=== PATIENT | male | born 1985 | race Caucasian/White ===

== ENCOUNTER 2020-05-24 23:42 | Emergency (ER) | payer OTHER ==
[~2020-05-24] VITALS: Ht 172.7 cm; Wt 81.6 kg
--- NOTE | 2020-05-24 23:45 | NUR ---
PT AAOX4. PT AAOX4. AMBULATORY WITH STEADY GAIT. BIBSELF C/O HI "IF I GO BACK TO MY APT I'M AFRAID IM GOING TO HURT MY ROOMMATE". -SI. PT PLACED IN GOWN, ON MONITOR AND PULSE OX. PT BELONINGS PLACED IN LOCKER, SITTER AT BEDSIDE. VSS. MD AT BEDSIDE FOR EVAL. AWAITING ORDERS.
[2020-05-25 01:06] LABS: BASOPHILS # (AUTO) 0.1 /CMM (0.0-0.2); BASOPHILS % (AUTO) 0.6 % (0.0-2.0); EOSINOPHILS % (AUTO) 0.8 % (0.0-6.0); HEMATOCRIT 48 % (39-51); HEMOGLOBIN 15.8 g/dL (13.5-17.5); LYMPHOCYTES % (AUTO) 36.3 % (20.0-44.0); MEAN CORPUSCULAR HGB CONC 33 g/dl (31.0-36.0); MEAN CORPUSCULAR VOLUME 85 fL (80-96); MONOCYTES # (AUTO) 0.8 /CMM (0.1-1.30); NEUTROPHILS # (AUTO) 6.2 /CMM (1.8-8.9); NEUTROPHILS % (AUTO) 55.3 % (43.0-81.0); PLATELET COUNT (AUTO) 320 /CMM (150-450); RED BLOOD CELL COUNT(AUTO) 5.67 MIL/uL (4.5-6.0); WHITE BLOOD COUNT (AUTO) 11.1 K/uL (4.3-11.0)
[2020-05-25 01:12] LABS: CALCIUM, SERUM 9.4 mg/dL (8.5-10.1); CARBON DIOXIDE 28 mmol/L (21-32); CHLORIDE 104 mmol/L (98-107); GLUCOSE 99 mg/dL (74-106); POTASSIUM 3.8 mmol/L (3.5-5.1); SODIUM SERUM 142 mmol/L (136-145); UREA NITROGEN, BLOOD 15 mg/dL (7-18)
[2020-05-25 01:27] LABS: ALANINE AMINOTRANSFERASE 30 U/L (12-78); ALBUMIN 4.5 g/dL (3.4-5.0); ALCOHOL, BLOOD < 3 mg/dL (0-0); ALKALINE PHOSPHATASE 75 U/L (46-116); ASPARTATE AMINOTRANSFERASE 16 U/L (15-37); BILIRUBIN,DIRECT 0.3 mg/dL (0.0-0.2); BILIRUBIN,TOTAL 1.3 mg/dL (0.2-1.0); TOTAL PROTEIN, SERUM 8.1 g/dL (6.4-8.2)
[2020-05-25 01:30] LABS: ACETAMINOPHEN < 10 ug/ml (10-30)
[2020-05-25 01:32] LABS: BILIRUBIN,URINE SMALL (NEGATIVE); COLOR,URINE YELLOW (YELLOW); LEUKOCYTE ESTERASE ,URINE NEGATIVE (NEGATIVE); NITRITE, URINE NEGATIVE (NEGATIVE); PROTEIN,URINE NEGATIVE (NEGATIVE); UGLUCOSE NEGATIVE (NEGATIVE); UROBILINOGEN,URINE 0.2 EU/dL (0.2)
--- NOTE | 2020-05-25 02:19 | NUR ---
facesheet and clinicals faxed to [facility].
--- NOTE | 2020-05-25 02:55 | NUR ---
FAX [phone] COVID AND MEDICAL CLEARANCE NOTE
--- NOTE | 2020-05-25 03:07 | NUR ---
COVID RESULT: NEGATIVE
--- NOTE | 2020-05-25 04:55 | NUR ---
PT ACCEPTED AT [facility] ACCEPTING MD BENZ PT WILL GO TO UNIT 1 PHONE # FOR REPORT
[2020-05-25 05:06] VITALS: BP 109/56
--- NOTE | 2020-05-25 05:12 | NUR ---
PT REMAINS ASLEEP.
--- NOTE | 2020-05-25 05:17 | NUR ---
CALLED FOR TRANSPORT WILL CALL BACK WITH [facility] SPOKE WITH [facility]. CONFIRMATION NUMBER IS [id number].
--- NOTE | 2020-05-25 05:29 | NUR ---
ETA 6:30 [facility] TRIP NUMBER [id number]
--- NOTE | 2020-05-25 05:37 | NUR ---
REPORT GIVEN TO TASHA JHA FOR [facility]
--- NOTE | 2020-05-25 06:26 | NUR ---
[facility] at bedside for transport to [facility]
== END 2020-05-25 06:43 ==
LOC: ER 23:45
DX: R45.850 Homicidal ideations (principal)
CPT/HCPCS: 36415; 80048; 80076; 80299; 80307; 80320; 81003; 85025; 87426; 99285; C9803; G0480

== ENCOUNTER 2020-08-25 21:19 | Emergency (ER) | payer OTHER ==
[~2020-08-25] VITALS: Ht 175.3 cm; Wt 81.6 kg
--- NOTE | 2020-08-25 21:22 | NUR ---
PT BIBSELF C/O SUICIDAL IDEATION WITH PLAN TO OVERDOSE. PT DENIES HI/HALLUCINATIONS AT THIS TIME. PT AAOX4. CALM AND COOPERATIVE. VITAL SIGNS STABLE. RESPIRATIONS EVEN AND UNLABORED. AMBULATORY WITH STEADY GAIT. SKIN WARM AND INTACT. NO ACUTE DISTRESS NOTED AT THIS TIME. SUICIDAL PRECAUTIONS INITIATED, PLACED IN GOWN, BELONGINGS COLLECTED AND LOCKED IN PATIENT LOCKER. SITTER AT BEDSIDE. WILL CONTINUE TO MONITOR
--- NOTE | 2020-08-25 21:30 | NUR ---
URINE COLLECTED AND SENT TO LAB
--- NOTE | 2020-08-25 21:43 | NUR ---
GAS SUBSTATION OPERATOR AT BEDSIDE FOR BLOOD DRAW
[2020-08-25 21:46] LABS: BASOPHILS # (AUTO) 0.1 /CMM (0.0-0.2); BASOPHILS % (AUTO) 0.8 % (0.0-2.0); EOSINOPHILS % (AUTO) 1.1 % (0.0-6.0); HEMATOCRIT 43 % (39-51); HEMOGLOBIN 14.1 g/dL (13.5-17.5); LYMPHOCYTES # (AUTO) 2.3 /CMM (0.8-4.8); LYMPHOCYTES % (AUTO) 23.9 % (20.0-44.0); MEAN CORPUSCULAR HGB CONC 33 g/dl (31.0-36.0); MEAN CORPUSCULAR VOLUME 77 fL (80-96); MONOCYTES # (AUTO) 0.7 /CMM (0.1-1.30); MONOCYTES % (AUTO) 7.3 % (2.0-12.0); NEUTROPHILS # (AUTO) 6.4 /CMM (1.8-8.9); NEUTROPHILS % (AUTO) 66.9 % (43.0-81.0); PLATELET COUNT (AUTO) 341 /CMM (150-450); RED BLOOD CELL COUNT(AUTO) 5.54 MIL/uL (4.5-6.0); WHITE BLOOD COUNT (AUTO) 9.6 K/uL (4.3-11.0)
[2020-08-25 21:49] LABS: BILIRUBIN,URINE Negative (NEGATIVE); COLOR,URINE YELLOW (YELLOW); LEUKOCYTE ESTERASE ,URINE Negative (NEGATIVE); NITRITE, URINE Negative (NEGATIVE); PROTEIN,URINE Negative (NEGATIVE); UGLUCOSE Negative (NEGATIVE); UROBILINOGEN,URINE 0.2 EU/dL (0.2)
--- NOTE | 2020-08-25 21:55 | NUR ---
COVID SWAB COLLECTED AND SENT TO LAB
[2020-08-25 22:04] LABS: ALANINE AMINOTRANSFERASE 28 U/L (12-78); ALBUMIN 3.9 g/dL (3.4-5.0); ALCOHOL, BLOOD < 3 mg/dL (0-0); ALKALINE PHOSPHATASE 95 U/L (46-116); ASPARTATE AMINOTRANSFERASE 17 U/L (15-37); BILIRUBIN,TOTAL 0.3 mg/dL (0.2-1.0); CALCIUM, SERUM 8.6 mg/dL (8.5-10.1); CARBON DIOXIDE 26 mmol/L (21-32); CHLORIDE 104 mmol/L (98-107); CREATININE 1.1 mg/dL (0.6-1.3); GLUCOSE 116 mg/dL (74-106); POTASSIUM 3.5 mmol/L (3.5-5.1); SODIUM SERUM 141 mmol/L (136-145); TOTAL PROTEIN, SERUM 7.6 g/dL (6.4-8.2); UREA NITROGEN, BLOOD 17 mg/dL (7-18)
[2020-08-25] MEDS ORDERED: ACETAMINOPHEN ES 500 MG TABLET ONE (22:08)
[2020-08-25 22:09] LABS: ACETAMINOPHEN < 2 ug/ml (10-30)
[2020-08-25] MEDS ORDERED: ACETAMINOPHEN ES 500 MG TABLET PO ONE (22:30)
--- NOTE | 2020-08-25 22:39 | NUR ---
Call from lab. Rapid covid negative.
--- NOTE | 2020-08-25 22:51 | NUR ---
Facesheet and clinicals faxed to [facility].
--- NOTE | 2020-08-26 00:16 | NUR ---
TRANSFER INFORMATION: PT WILL BE TRANSFERRED TO [facility] ACCEPTING MD: DR. DUNCAN NUMBER FOR REPORT: [phone] UNIT 1
--- NOTE | 2020-08-26 00:58 | NUR ---
[id number] IS THE RES # [id number] FROM [facility].
--- NOTE | 2020-08-26 01:22 | NUR ---
[facility] CALLED REGARDING [facility]ORT ETA [facility] 0230AM.
--- NOTE | 2020-08-26 02:24 | NUR ---
REPORT GIVEN TO BABATUNDE CORDOVA. TRANSPORT AT BEDSIDE REPORT GIVEN TO EMT.
[2020-08-26 02:25] VITALS: BP 137/76
== END 2020-08-26 02:36 ==
LOC: ER 21:20
DX: R45.851 Suicidal ideations (principal); F32.9 Major depressive disorder, single episode, unspecified; I10 Essential (primary) hypertension; J45.909 Unspecified asthma, uncomplicated; Z20.822 Contact with and (suspected) exposure to COVID-19
CPT/HCPCS: 36415; 80048; 80076; 80299; 80307; 80320; 81003; 85025; 87426; 99285; C9803; G0480